=== PATIENT | female | born 1990 | race African-American/Black ===

== ENCOUNTER 2018-09-22 11:43 | Outpatient (CLI) | payer MEDICAID ==
--- NOTE | 2018-09-22 12:25 | Non Stress Test Report ---
Non Stress Test Datetime Report Generated by CPN: 09/22/2018 12:25 DEMOGRAPHIC EGA NST: 40.3 INDICATION Indication for Study: Ordered by Provider Indication for Study: Ordered by Provider Indication for Study (NST) Other: repeat from the office VITAL SIGNS Temperature - NST: 98.7 Pulse - NST: 82 RESP - NST: 15 NBPSYS NST: 113 NBPDIA NST: 56 MONITORING Monitor Explained: Monitor Explained; Test Explained; Patient Verbalized Understanding Monitor Explained: Monitor Explained; Test Explained; Patient Verbalized Understanding Time on Monitor: 09/22/2018 11:50 Time on Monitor: 09/22/2018 12:00 Time off Monitor: 09/22/2018 12:17 Time off Monitor: 09/22/2018 12:17 NST Duration: 27 NST Duration: 17 NST INTERVENTIONS NST Interventions: None NST Interventions: PO Hydration; Reposition Patient Physician Notified NST: A. Stiles, CNM Physician Notified NST: A Stiles CNM BABY A: [id number] BABY A Movement : Present Movement : Present Contraction Frequency : 0 Contraction Frequency : 0 FHR Baseline : 125 FHR Baseline : 125 Accelerations : 15X15 Accelerations : 15X15 Decelerations : None Decelerations : None Variability : Moderate 6-25bpm Variability : Moderate 6-25bpm NST Review: Meets Criteria for Reactive NST NST Review: Meets Criteria for Reactive NST NST Review and Verified By : Muriel Louis RN NST Review and Verified By : Muriel Louis RN NST Results: Reactive NST Results: Reactive NST REPORT Report Trigger: Send Report Report Trigger: Send Report
== END 2018-09-22 12:26 | disposition home or self-care (01) ==
LOC: LC 11:43
PROVIDERS: ATTEND Obstetrics & Gynecology
PROC: 4A1HXCZ Monitoring of Products of Conception, Cardiac Rate, External Approach (ICD-10-PCS; principal; 2018-09-22)
DX: O48.0 Post-term pregnancy (principal); Z3A.40 40 weeks gestation of pregnancy

== ENCOUNTER 2018-09-24 12:49 | Inpatient (IN) | payer MEDICAID ==
[2018-09-24] MEDS ORDERED: PENICILLIN G-K 5 MILLION UNIT VIAL ONE (13:10)
[2018-09-24] MEDS ORDERED: LIDOCAINE 1% INJ-PF (10 MG/ML) 30 ML SDV ONE (13:14)
[2018-09-24] MEDS ORDERED: OXYTOCIN/NORMAL SALINE 20 UNIT/1,000 ML RTUINJ ONE ×2 (13:14→14:39)
[2018-09-24] MEDS ORDERED: MISOPROSTOL 0.2 MG TABLET ONE (13:14)
[2018-09-24] MEDS ORDERED: OXYTOCIN 10 UNIT/ML VIAL ONE (13:14)
[2018-09-24] MEDS: OXYTOCIN/NORMAL SALINE 20 UNIT/1,000 ML RTUINJ IV PRN ×2 (13:44→14:47)
[2018-09-24 13:54] LABS: APPEARANCE,URINE TURBID; BILIRUBIN,URINE NEGATIVE (NEGATIVE); COLOR,URINE AMBER; GLUCOSE, URINE NEGATIVE (NEGATIVE); KETONES,URINE NEGATIVE (NEGATIVE); LEUKOCYTE ESTERASE,URINE TRACE (NEGATIVE); NITRITE,URINE NEGATIVE (NEGATIVE); PROTEIN,URINE NEGATIVE (NEGATIVE); URINE SPECIFIC GRAVITY 1.027; UROBILINOGEN,URINE NEGATIVE mg/dL (<2.0)
[2018-09-24] MEDS ORDERED: IBUPROFEN 800 MG TABLET ONE (13:56)
[2018-09-24] MEDS ORDERED: BENZOCAINE/MENTHOL AEROSOL SPRAY 56 ML TOP PRN (14:03)
[2018-09-24] MEDS ORDERED: RINGERS SOLUTION,LACTATED 1,000 ML IV ONE (14:03)
[2018-09-24] MEDS ORDERED: DIBUCAINE 1% OINTMENT 56 GM TP PRN (14:03)
[2018-09-24] MEDS ORDERED: PENICILLIN G POTASSIUM 5,000,000 UNIT in DEXTROSE 5%-WATER 100 ML IV ONE (14:03)
[2018-09-24] MEDS ORDERED: DIPH/PERTUSS(ACELL)/TETANUS VAC/PF 0.5 ML SYR (>=10YO) IM PRN (14:03)
[2018-09-24] MEDS ORDERED: ACETAMINOPHEN WITH CODEINE #3 TABLET PO PRN ×2 (14:03)
[2018-09-24] MEDS ORDERED: RINGERS SOLUTION,LACTATED 1,000 ML IV PRN (14:03)
[2018-09-24] MEDS ORDERED: MEASLES,MUMPS&RUBELLA VACC/PF 0.5 ML VIAL SUBCUT PRN (14:03)
[2018-09-24] MEDS ORDERED: ZOLPIDEM TARTRATE 5 MG TABLET PO PRN (14:03)
--- NOTE | 2018-09-24 14:03 | Admission Physical ---
Datetime Report Generated by CPN: 09/24/2018 14:02 CURRENT ADMISSION Chief Complaint: Uterine Contractions Indication for Induction: Not Applicable Admit Impression : Term, Intrauterine ; Active Labor Admit Impression- Other: c/c/+1 on admit Admit Plan: Admit to Unit; Initiate Labor Protocol Admit Plan- Other: H_P done after delivery ALLERGIES Medication Allergies: No Medication Allergies: No Known Allergies (09/24/2018) Latex: No Latex Allergies OBSTETRICAL HISTORY EDC: 09/19/2018 00:00 : 7 Para: 4 Livin SEE RECORDS Alcohol: No Marijuana : No Cocaine: No Other Illicit Drugs: No Cigarettes: Never Smoker. [id number] PHYSICAL EXAM General: Normal HEENT: Normal Neurologic: Normal Thyroid: Deferred Heart: Normal Lungs: Normal Breast: Deferred Back: Normal Abdomen: Normal Genitourinary Exam: Normal Extremities: Normal DTRs: Normal Pelvic Type: Adequate Vital Signs: Reviewed FETUS A EGA: 40.5 Monitoring: External US Presentation: Vertex Admit Comment: [id number] wks Proven for 8lbs 15oz GBS positive-given PCN at 1316 Hx eczema w open lesions during Anemia-treated w iron Late onset care at 20 wks S/P viable female PLANS FOR LABOR AND DELIVERY Feeding Preference: Breast Benefit of Breast Feed Discussed: Yes INFORMED CONSENT Assignment: Sheba Sanchez MD Signature: with User ID: [email or web address] : with User ID: Wendy : I personally evaluated and examined the patient in conjunction with the MLP and agree with the assessment, treatment plan and disposition.
[2018-09-24 14:15] LABS: URINE AMPHETAMINES SCREEN NEGATIVE; URINE BARBITURATES SCREEN NEGATIVE; URINE BENZODIAZEPINES SCREEN NEGATIVE; URINE COCAINE SCREEN NEGATIVE; URINE MARIJUANA (THC) SCREEN NEGATIVE; URINE METHADONE SCREEN NEGATIVE; URINE PHENCYCLIDINE SCREEN NEGATIVE
--- NOTE | 2018-09-24 14:35 | Warning Signs in Babies ---
VOD Warning Signs Datetime Report Generated by [facility]: 09/24/2018 14:34 VOD#608 -Warning Signs in Babies: Viewed with Parent(s)/Family (09/24/2018 14:32:Robbie Tafoya RN)
[2018-09-24] MEDS ORDERED: MISOPROSTOL 0.2 MG TABLET PR ONE (14:39)
[2018-09-24] MEDS ORDERED: OXYTOCIN/NORMAL SALINE 20 UNIT/1,000 ML RTUINJ IV PRN (14:41)
[2018-09-24 15:00] LABS: ABSOLUTE LYMPHOCYTES (AUTO) 0.6 10^3/uL (0.5-4.7); ABSOLUTE MONOCYTES (AUTO) 0.2 10^3/uL (0.1-1.4); ABSOLUTE NEUT (AUTO) 9.2 10^3/uL (1.7-8.2); BASOPHILS % (AUTO) 0.4 % (0-2); EOSINOPHILS % (AUTO) 0.1 % (0-6); HEMATOCRIT 24.8 % (36.0-47.0); LYMPHOCYTES % (AUTO) 6.2 % (13-45); MEAN CORPUSCULAR HEMOGLOBIN 22.9 pg (27.0-33.4); MEAN CORPUSCULAR HGB CONC 31.7 g/dL (32.0-36.0); MEAN CORPUSCULAR VOLUME 72 fl (80-97); MONOCYTES % (AUTO) 2.5 % (3-13); PLATELET COUNT 130 10^3/uL (150-450); RED BLOOD COUNT 3.42 10^6/uL (3.72-5.28); RED CELL DISTRIBUTION WIDTH 16.7 % (11.5-14.0); SEGMENTED NEUTROPHILS % (AUTO) 90.8 % (42-78); TOTAL CELLS COUNTED % (AUTO) 100 %; WHITE BLOOD COUNT 10.1 10^3/uL (4.0-10.5)
[2018-09-24 15:04] LABS: HEMOGLOBIN 7.8 g/dL (12.0-15.5)
--- NOTE | 2018-09-24 16:21 | Delivery Summary ---
Del Sum A-C Datetime Report Generated by CPN: 09/24/2018 16:20 DELIVERY PERSONNEL DELIVERY PERSONNEL: [id number] Delivery Doctor:: Roseanna Stahl CNM Nurse Control Equipment Electrician Certified:: Roseanna Stahl CNM Labor and Delivery Nurse:: Robbie Tafoya RNorthotic/prosthetic clinician Nurse:: CARLOS Gregory Nursery Nurse:: Mara Culp RN Student Observers:: Maxine MENG [facility] Program Micheal Doty SN Printer'S Assistant/WALL CLEANER: ST Rubén Printer'S Assistant/WALL CLEANER: Keshia Bowden CNA II MATERNAL INFORMATION Delivery Anesthesia: None Medications After Delivery: Pitocin Bolus-Please Comment Meds After Delivery Comment: Pitocin 20 units in 1000 ml nss open for bolus with delivery of placenta Estimated Blood Loss (ml): 175 Maternal Complications: None Provider Comments: Arrived on unit-exam c/c/+1/. SROM at 1306 w moderate, old-looking, yellow meconium. Began pushing with urge to push. viable female infant OA to EBONY at 1339. Spontaneous respirations and cry. 3 vessel cord. Apgars 9-9. Cord clamped, after 2 min delay, then cut by fob. Placenta, membranes, and cord expelled at 1344, Holcomb presentation, intact. Perineum inspected, 2 tiny abraisions, no repair. FF at U-2. Patient tolerated patient well. LABOR SUMMARY EDC: 09/19/2018 00:00 No. Babies in Womb: 1 Attempted: No Labor Anesthesia: None LABOR INFORMATION Reason for Induction: Not Applicable Onset of Labor: 09/24/2018 07:00 Complete Dilatation: 09/24/2018 13:11 Oxytocin: N/A Group B Beta Strep: Positive Antibiotics # of Doses: 1 Antibiotics Time of Last Dose: 1316 Name of Antibiotic Given: Penicillin Steroids Given: None Reason Steroids Not Administered: Not Applicable MEMBRANES Membranes Rupture Method: Spontaneous Rupture of Membranes: 09/24/2018 13:06 Length of Rupture (hr): 0.55 Amniotic Fluid Color: Moderate Meconium Amniotic Fluid Amount: Small Amniotic Fluid Odor: Normal STAGES OF LABOR Stage 1 hr: 6 Stage 1 min: 11 Stage 2 hr: 0 Stage 2 min: 28 Stage 3 hr: 0 Stage 3 min: 5 Total Time in Labor hr: 6 Total Time in Labor min: 44 VAGINAL DELIVERY Episiotomy: None Laceration #1: None Laceration Extension #1: N/A Laceration Repair: Not Applicable Sponge Count Correct: N/A Sharps Count Correct: Yes CSECTION DELIVERY Primary Indication: N/A Secondary Indication: N/A CSection Incidence: N/A Labor: N/A Elective: N/A CSection Incision: N/A BABY A INFORMATION Infant Delivery Date/Time: 09/24/2018 13:39 Method of Delivery: Vaginal Born in Route : No : N/A Forceps: N/A Vacuum Extraction: N/A Shoulder Dystocia : No PRESENTATION/POSITION BABY A Presentation: Cephalic Cephalic Presentation: Vertex Vertex Position: Right Occipital Anterior Breech Presentation: N/A PLACENTA INFORMATION BABY A Placenta Delivery Time : 09/24/2018 13:44 Placenta Method of Delivery: Spontaneous Placenta Status: Delivered SCORES BABY A Heart Rate 1 min: >100 bpm Resp Effort 1 min: Good Cry Reflex Irritability 1 min: Cough or Sneeze or Pulls Away Muscle Tone 1 min: Active Motion Color 1 min: Body [place], Extremities Blue Resuscitation Effort 1 min: Tactile Stimulation SCORE 1 MIN: 9 Heart Rate 5 min: >100 bpm Resp Effort 5 min: Good Cry Reflex Irritability 5 min: Cough or Sneeze or Pulls Away Muscle Tone 5 min: Active Motion Color 5 min: Body [place], Extremities Blue Resuscitation Effort 5 min: N/A SCORE 5 MIN: 9 Resuscitation Effort 10 min: N/A INFANT INFORMATION BABY A Gestational Age at Delivery: 40.5 Gestational Status: Full Term- 39- 40.6 Weeks Outcome : Liveborn Condition : Stable Infant Sex: Female IDENTIFICATION BABY A Infant Verification Date/Time: 09/24/2018 13:48 ID Band Number: [id number] Mother's Name Verified: Yes RN Verifying : Renu Camp RNC Additional Verifying Personnel: Robbie Tafoya RN WEIGHT/LENGTH BABY A Infant Birthweight (gm): 3992 Infant Weight (lb): 8 Weight (oz): 13 Length (in): 21.75 Length (cm): 55.25 CORD INFORMATION BABY A No. Cord Vessels: 3 Nuchal Cord : N/A Cord Blood Taken: Yes-For Eval (Mom's Blood Type - or O+) Suction: None ASSESSMENT BABY A Complications: Meconium Complications- Other: right compound hand Physical Findings at Delivery: Within Normal Limits Respirations: Appears Normal Skin to Skin: Yes Skin to Skin Time (min): 60 Credit Professional/ALS Called : No Care By: Steven Culp RN Transferred To: Remains with Mother BABY B INFORMATION : N/A SIGNATURES Assignment: Sheba Sanchez MD Signature: with User ID: Wendy : with User ID: Wendy : I personally evaluated and examined the patient in conjunction with the MLP and agree with the assessment, treatment plan and disposition.
[2018-09-24] MEDS ORDERED: FERROUS SULFATE 325 MG TABLET PO ONE (17:47)
[2018-09-24] MEDS ORDERED: DOCUSATE SODIUM 100 MG CAPSULE ONE (17:47)
[2018-09-24] MEDS: DOCUSATE SODIUM 100 MG CAPSULE PO SCH (17:48)
[2018-09-24] MEDS: FERROUS SULFATE 325 MG TABLET PO SCH (17:48)
[2018-09-24] MEDS ORDERED: ACETAMINOPHEN WITH CODEINE #3 TABLET ONE (19:27)
[2018-09-24] MEDS: IBUPROFEN 800 MG TABLET PO SCH (22:49)
[2018-09-25] MEDS: IBUPROFEN 800 MG TABLET PO SCH ×3 (05:05→21:46)
[2018-09-25 07:30] LABS: MEAN CORPUSCULAR HEMOGLOBIN 22.9 pg (27.0-33.4); MEAN CORPUSCULAR HGB CONC 32.2 g/dL (32.0-36.0); MEAN CORPUSCULAR VOLUME 71 fl (80-97); PLATELET COUNT 123 10^3/uL (150-450); WHITE BLOOD COUNT 9.5 10^3/uL (4.0-10.5)
[2018-09-25 07:46] LABS: HEMOGLOBIN 7.1 g/dL (12.0-15.5)
[2018-09-25] MEDS: DOCUSATE SODIUM 100 MG CAPSULE PO SCH ×2 (11:20→17:30)
[2018-09-25] MEDS: PRENATAL VITAMIN W DHA CAPSULE PO SCH (11:20)
[2018-09-25] MEDS: FERROUS SULFATE 325 MG TABLET PO SCH ×2 (11:20→17:30)
[2018-09-25] MEDS: SENNOSIDES/DOCUSATE 8.6-50 MG 1 EACH TABLET PO SCH (11:21)
--- NOTE | 2018-09-25 12:30 | PDOC PROGRESS REPORT ---
Subjective Progress Note for:: 09/25/18 Subjective:: no complaints doing well Reason For Visit: Physical Exam - Physical Exam Vital Signs: Temp Pulse Resp BP Pulse Ox 97.7 F 62 16 112/61 100 09/25/18 08:08 09/25/18 08:08 09/25/18 08:08 09/25/18 08:08 09/25/18 08:08 Intake & Output 09/24/18 09/25/18 09/26/18 06:59 06:59 06:59 Intake Total 1240 Balance 1240 Weight 89.3 kg General appearance: PRESENT: no acute distress, cooperative - Obstetrical Exam Fundal Height: 1/u - 2/u Result Laboratory Results: 09/25/18 06:59 09/24/18 09/24/18 09/24/18 13:00 14:15 14:15 WBC 10.1 RBC 3.42 L Hgb 7.8 L Hct 24.8 L MCV 72 L MCH 22.9 L MCHC 31.7 L RDW 16.7 H Plt Count 130 L Seg Neutrophils % 90.8 H Lymphocytes % 6.2 L Monocytes % 2.5 L Eosinophils % 0.1 Basophils % 0.4 Absolute Neutrophils 9.2 H Absolute Lymphocytes 0.6 Absolute Monocytes 0.2 Absolute Eosinophils 0.0 Absolute Basophils 0.0 Urine Color VALE Urine Appearance TURBID Urine pH 5.0 Ur Specific [place] 1.027 Urine Protein NEGATIVE Urine Glucose (UA) NEGATIVE Urine Ketones NEGATIVE Urine Blood SMALL H Urine Nitrite NEGATIVE Ur Leukocyte Esterase TRACE H Blood Type A POSITIVE Antibody Screen NEGATIVE 09/25/18 06:59 WBC 9.5 RBC 3.10 L Hgb 7.1 L Hct 22.0 L MCV 71 L MCH 22.9 L MCHC 32.2 RDW 17.0 H Plt Count 123 L Seg Neutrophils % Lymphocytes % Monocytes % Eosinophils % Basophils % Absolute Neutrophils Absolute Lymphocytes Absolute Monocytes Absolute Eosinophils Absolute Basophils Urine Color Urine Appearance Urine pH Ur Specific [place] Urine Protein Urine Glucose (UA) Urine Ketones Urine Blood Urine Nitrite Ur Leukocyte Esterase Blood Type Antibody Screen Assessment & Plan - Diagnosis (1) Anemia Qualifiers: Anemia type: unspecified type Qualified Code(s): D64.9 - Anemia, unspecified Is this a current diagnosis for this admission?: Yes (2) Delivery normal Is this a current diagnosis for this admission?: Yes - Plan Summary Plan Summary: plan discharge home in AM
[2018-09-26] MEDS: IBUPROFEN 800 MG TABLET PO SCH ×2 (05:46→14:00)
[2018-09-26 08:21] VITALS: BP 107/60
[2018-09-26] MEDS: PRENATAL VITAMIN W DHA CAPSULE PO SCH (11:15)
[2018-09-26] MEDS: SENNOSIDES/DOCUSATE 8.6-50 MG 1 EACH TABLET PO SCH (11:16)
[2018-09-26] MEDS: DOCUSATE SODIUM 100 MG CAPSULE PO SCH (11:16)
[2018-09-26] MEDS: FERROUS SULFATE 325 MG TABLET PO SCH (11:16)
--- NOTE | 2018-09-26 13:41 | PDOC DISCHARGE SUMMARY ---
Final Diagnosis Discharge Date: 09/26/18 - Final Diagnosis (1) Anemia Is this a current diagnosis for this admission?: Yes (2) Delivery normal Is this a current diagnosis for this admission?: Yes Discharge Data - Discharge Medication Prescriptions: Docusate Sodium [Colace 100 mg Capsule] 100 mg PO BID #60 capsule Ferrous Sulfate [Feosol 325 mg Tablet] 325 mg PO BID #60 tablet Ibuprofen [Motrin 800 mg Tablet] 800 mg PO Q8 #60 tablet Home Medications: Vit/Iron Fumarate/FA [ Plus Tablet] 1 tab PO DAILY 12/27/12 Docusate Sodium [Colace 100 mg Capsule] 100 mg PO BID #60 capsule 09/26/18 Ferrous Sulfate [Feosol 325 mg Tablet] 325 mg PO BID #60 tablet 09/26/18 Ibuprofen [Motrin 800 mg Tablet] 800 mg PO Q8 #60 tablet 09/26/18 Reason(s) for Admission: Onset of Labor Procedures: NST Intrapartum Procedure(s): Spontaneous Vaginal Delivery - Diagnosis Test Laboratory: Temp Pulse Resp BP Pulse Ox 98.1 F 72 16 107/60 100 09/26/18 12:20 09/26/18 12:20 09/26/18 12:20 09/26/18 08:11 09/26/18 12:20 09/24/18 09/24/18 09/25/18 13:00 14:15 06:59 RBC 3.42 L 3.10 L Hgb 7.8 L 7.1 L Hct 24.8 L 22.0 L Urine Opiates Screen NEGATIVE - Discharge information/Instructions Discharge Activity: Activity As Tolerated, Pelvic Rest Discharge Diet: Regular Disposition: HOME, SELF-CARE Follow [facility] with: [facility] in: 4, Weeks
== END 2018-09-26 17:25 | disposition home or self-care (01) | DRG 807 ==
LOC: LC 12:49 → LR 13:10 → 2S 22:13
PROVIDERS: ADMIT Student in an Organized Health Care Education/Training Program; ATTEND Student in an Organized Health Care Education/Training Program
PROC: 10E0XZZ Delivery of Products of Conception, External Approach (ICD-10-PCS; principal; 2018-09-24)
PROC: 4A1HXCZ Monitoring of Products of Conception, Cardiac Rate, External Approach (ICD-10-PCS; 2018-09-24)
DX: O99.824 Streptococcus B carrier state complicating childbirth (principal); Z37.0 Single live birth; O99.02 Anemia complicating childbirth; D64.9 Anemia, unspecified; Z28.21 Immunization not carried out because of patient refusal; Z3A.40 40 weeks gestation of pregnancy
CPT/HCPCS: 36415; 80307; 81005; 85025; 85027; 86592; 86850; 86900; 86901; 88307; J2540; J2590; J3490